=== PATIENT | male | born 1955 | race Caucasian/White ===

== ENCOUNTER → 2017-12-26 | Outpatient (CLI) | payer BC ==
[2017-12-26 09:34] LABS: ALT 37 U/L (21-72); AST 39 U/L (17-59); Albumin 4.1 g/dL (3.5-5.0); Alkaline Phosphatase 60 U/L (38-126); Anion Gap 10 mmol/L; Blood Urea Nitrogen 15 mg/dL (9-20); Calcium 9.3 mg/dL (8.4-10.2); Carbon Dioxide 24 mmol/L (22-30); Chloride 107 mmol/L (98-107); Glucose 104 mg/dL (74-99); Potassium 4.6 mmol/L (3.5-5.1); Sodium 141 mmol/L (137-145); Total Bilirubin 0.6 mg/dL (0.2-1.3)
== END | disposition home or self-care (01) ==
LOC: LABWHC1 08:19
PROVIDERS: ATTEND Otolaryngology
DX: E04.1 Nontoxic single thyroid nodule (principal)
CPT/HCPCS: 36415; 80053; 84443

== ENCOUNTER → 2018-09-24 | Outpatient (CLI) | payer BC | END | disposition home or self-care (01) | LOC: LABWHC1 07:57 | PROVIDERS: ATTEND Otolaryngology | DX: E03.9 Hypothyroidism, unspecified (principal) | CPT/HCPCS: 36415; 86376 ==

== ENCOUNTER → 2018-09-26 | Outpatient (CLI) | payer BC ==
--- NOTE | 2018-09-28 19:39 | US ---
EXAMINATION TYPE: US thyroid st tissue head/neck DATE OF EXAM: 09/26/2018 COMPARISON: NONE CLINICAL HISTORY: 63-year-old male with abnormal thyroid labs R94.6, R22.1 Swelling/mass in neck. Pat ient states having left vocal chord issues. On thyroid meds. TECHNIQUE: Multiple sonographic images of the thyroid gland are obtained. FINDINGS: GLAND SIZE: Right Lobe: 2.4 x 0.9 x 1.0 cm Overall Parenchyma: heterogenous Left Lobe: 2.5 x 1.3 x 1.0 cm Overall Parenchyma: heterogeneous Isthmus Thickness: 0.2 cm NODULES RIGHT: # of nodules measured on right: 0 LEFT: # of nodules measured on left: 0 ISTHMUS: # of nodules measured in the isthmus: 0 Bilateral neck scanned, no evidence of lymphadenopathy. [facility] notes: Bilateral heterogenous and small in size appearing thyroid. IMPRESSION: Small heterogeneous thyroid gland. Findings suggest chronic hypothyroidism. No discrete nodules.
== END | disposition home or self-care (01) ==
LOC: RADUSMAIN 15:45
PROVIDERS: ATTEND Otolaryngology
DX: R22.1 Localized swelling, mass and lump, neck (principal); R94.6 Abnormal results of thyroid function studies
CPT/HCPCS: 76536

== ENCOUNTER → 2018-10-30 | Day surgery (SDC) | payer BC ==
[2018-10-27 14:49] VITALS: BMI 37.7
[~2018-10-30] MED LIST: BUPIVACAIN-EPI 0.5%-1:200,000 30 ML VIAL SQ ONE; DEXAMETHASONE SOD PHOS (MDV) 100 MG/10 ML VIAL ONE; DEXAMETHASONE SOD PHOSPHATE 10 MG/ML 1 ML VIAL IV ONE; DEXAMETHASONE SOD PHOSPHATE 4 MG/ML 1 ML VIAL IV ONE; FAMOTIDINE 20 MG/2 ML VIAL IV ONE; HYDROmorphone 0.5 MG/0.5 ML SYRINGE IVP PRN; LACTATED RINGERS 1,000 ML IV SCH; LIDOCAINE 1%-EPI 1:100,000 20 ML VIAL SQ ONE; MIDAZOLAM 2 MG/2 ML VIAL IV PRN; MIDAZOLAM 2 MG/2 ML VIAL ONE; ONDANSETRON 4 MG/2 ML VIAL IVP ONE; PROPOFOL 10 MG/ML 20 ML VIAL IV ONE; fentaNYL (PF) 50 MCG/ML 2 ML AMP ONE
[2018-10-30 09:26] VITALS: RESP 16
[2018-10-30] MEDS: OXYMETAZOLINE 0.05% NASL SPRAY 1 SPRAY BOTTLE NASAL ONE ×5 (10:00→10:20)
[2018-10-30 13:30] VITALS: TEMP 97.4
--- NOTE | 2018-10-30 13:45 | P.OP ---
Date of Procedure: 10/30/18 Preoperative Diagnosis: Left vocal cord paralysis Postoperative Diagnosis: same Procedure(s) Performed: Left medialization thyroplasty with a #10 Gibson implant, male Anesthesia: JOSLYNA Surgeon: Craig Zabala Estimated Blood Loss (ml): 5 Pathology: none sent Condition: stable Disposition: PACU Indications for Procedure: This patient developed a left vocal cord paralysis and associated hoarseness dysphagia and suspected microaspiration. This been going on for a long time and the patient's anxious to have this corrected.. A medialization thyroplasty was discussed and the patient's motivated for this surgery. All risks, benefits, and alternative therapies were discussed. Consent was obtained and all questions were answered. Operative Findings: Left vocal cord paralysis noted in the paramedian position. Patient was severely dysphonic Description of Procedure: OPERATIVE PROCEDURE: This patients neck was prepped and draped in the usual fashion. (LEFT SIDE) The anterior neck was prepared and draped such to expose the ipsilateral and contralateral sides. Oxygen was administered through nasal prongs. The thyroid notch, cricothyroid membrane and the inferior margin of the cricoid cartilage were identified and marked with dots utilizing a surgical marker. A horizontal skin incision line is marked approximately 5 mm above the inferior margin of the thyroid cartilage. The area surrounding the incision as well as the deep tissues were infiltrated with 1% Xylocaine and 1:100,000 epinephrine. The incision began 2 cm from the midline on the contralateral side and extended on the ipsilateral side of the neck to the anterior border of the sternocleidomastoid muscle. The skin incision was extended through the platysmas layer with a 15 blade so as to expose the sternohyoid and omohyoid muscles. Flaps were established superiorly and inferiorly in the plane superficial to the fascia covering the strap muscles. Flaps were with self-retaining retractors. The midline i.e. medial raphe is identified and the two sternohyoid muscles are to expose the thyroid notch. The anterior aspect of the thyroid cartilage, cricothyroid membrane and cricoid cartilage were exposed. The under surface of the ipsilateral sternohyoid and omohyoid muscles were dissected so that it could be retracted laterally. A Gelpi retractor was used for lateral retraction. The strap muscles were retracted laterally to expose the thyrohyoid muscle on the surface of the thyroid lamina. The muscle was transected just above the inferior border of the thyroid lamina. The thyrohyoid muscle was detached from its inferior attachment utilizing the chisel elevator and cutting current on the cautery. The thyroid lamina, its inferior border then inferior thyroid tubercle were exposed. The window caliper was used to locate the superior border and the anterior superior angle of the thyroplasty window. After the inferior thyroid tubercle had been identified and exposed, the inferior border of the thyroid lamina is exposed anterior and posterior to the structure. One point of the caliper touched the inferior border of the thyroid lamina anterior to the inferior thyroid tubercle and the other point directly superior. A similar cautery point was made in the inferior border posterior to the inferior thyroid tubercle utilizing 0.2. The anterior and posterior cautery markings were connected utilizing a surgical marking pen. The line is extended to the anterior aspect of the thyroid lamina and represents the superior margin of the thyroplasty window. The mcdowell point was measures and represents the anterior superior angle of the thyroplasty window. The window outline was measured. The shaft of the instrument was inserted into the electrocautery handle. The anterior superior point of the window outlined and was placed on the mcdowell point cautery. Current was applied making four colbert designating the four corners of the windows. The four colbert were connected with surgical marker . A small tangential saw was used to cut the thyroplasty window. The anterior margin of the cartilage was grasped with a small sharp hook and gently elevated. The underlying perichondrium was from the cartilage utilizing the chisel elevator as the cartilage was removed. After the cartilage was removed from the window, the window outlying instrument was used as a template to confirm that the window size was correct. After confirming accurate window size, the end of perichondrium was elevated from the underlying cartilage in all directions utilizing the chisel elevator. The fiberoptic laryngoscope was inserted at the same time and the size of each measuring device was identified and we started with the smallest size of the measuring device and went up to the largest size. We had him phonate and we looked directly. We felt that the number 10 was the best implant size. A 100 mg of lidocaine hydrochloride was administered intravenously prior to insertion of the implant. The implant was grasped with the broad forceps and the posterior tip of the triangular portion is inserted through the window in the direction of the vocal process of the arytenoid. The middle tear of the base is engaged in the posterior rim of the window with the top and bottom tears at the base on either side of thyroid lamina. The implant was held in place with the index finger and the implant billet recorder was placed in the middle of the anterior base and was used to snap the implant in place. The fiberoptic scope was again used to confirm the vocal cord medialization while the patient phonates and it looked good. The sternohyoid muscles were approximated in the anterior midline with 4-0 Vicryl. The subcutaneous layer was closed after the platysmas was closed. No drain was needed. We observed this area and we did not find any need for that. The patient tolerated this procedure well. The deep dermal layers were closed with 4-0 Vicryl. The skin was closed with 5-0 nylon. Excellent results were obtained. The patient was placed on voice rest. Postoperative instructions are on the chart.
[2018-10-30 15:22] VITALS: BP 116/70; PULSE 62
== END ==
LOC: OR 08:43
PROVIDERS: ATTEND Otolaryngology
DX: J38.01 Paralysis of vocal cords and larynx, unilateral (principal); E07.9 Disorder of thyroid, unspecified; Z87.891 Personal history of nicotine dependence; Z79.890 Hormone replacement therapy; Z80.1 Family history of malignant neoplasm of trachea, bronchus and lung; Z82.49 Family history of ischemic heart disease and other diseases of the circulatory system; Z97.2 Presence of dental prosthetic device (complete) (partial)
CPT/HCPCS: 31591; L8509; J2250; J1100 ×2; J2405; J0690; J3010; J2704

== ENCOUNTER → 2020-09-15 | Outpatient (CLI) | payer BC ==
--- NOTE | 2020-09-15 13:05 | XR ---
EXAMINATION TYPE: XR cervical spine comp DATE OF EXAM: 09/15/2020 COMPARISON: NONE HISTORY: Pain TECHNIQUE: Four views are submitted. FINDINGS: The odontoid is intact. There are no compression deformities. The prevertebral soft tissue structur es are within normal limits. Large anterior osteophyte disease C5-6 C6-C7 with severe degenerative d isc disease C3-4 and C5-C6. Multilevel facet arthropathy. Foraminal encroachment at multiple levels s uspected. IMPRESSION: 1. Multilevel severe degenerative disc disease with hypertrophic spurring. Foraminal encroachment sug gested. Recommend follow-up MRI..
== END | disposition home or self-care (01) ==
LOC: RADXRMAIN 12:37
PROVIDERS: ATTEND Nurse Practitioner Family
DX: M50.30 Other cervical disc degeneration, unspecified cervical region (principal); M46.02 Spinal enthesopathy, cervical region
CPT/HCPCS: 72050

== ENCOUNTER → 2020-09-27 | Outpatient (CLI) | payer BC ==
--- NOTE | 2020-09-27 11:45 | MR ---
EXAMINATION TYPE: MR cervical spine wo con DATE OF EXAM: 09/27/2020 COMPARISON: X-ray 09/15/2020 HISTORY: Headaches, weakness in fingers. TECHNIQUE: Multiplanar, multisequence images of the cervical spine were acquired. C2-C3: Loss of disc space and signal. There is uncovertebral joint hypertrophy. No disc herniation or canal stenosis. Facet arthropathy noted. C3-C4: Severe loss of disc space and signal with discogenic marrow changes. Facet arthropathy and unc overtebral joint hypertrophy noted with moderate left foraminal encroachment. Is broad-based central disc bulging with disc osteophyte complex resulting in effacement of thecal sac. Borderline central s tenosis. C4-C5: Degenerative disc disease with facet arthropathy marked on the left. There is uncovertebral lucie int hypertrophy and moderate left foraminal encroachment. No Canal stenosis. Minimal central disc bul ging. C5-C6: Degenerative disc disease with broad-based disc bulging. There is posterior disc osteophyte co mplex with uncovertebral joint hypertrophy. Mild bilateral foraminal encroachment. Mild effacement of thecal sac. C6-C7: Degenerative disc disease with broad-based disc bulging greater paracentrally the left but no canal stenosis or focal herniation. Neural foramina are patent. No Canal stenosis. C7-T1: Degenerative disc disease but no evidence of disc herniation, canal stenosis, or foraminal enc roachment. Cervical segments are intact. There is normal alignment. Cervical spinal cord is of normal signal. Craniovertebral junction relationships are within normal limits. IMPRESSION: 1. Multilevel degenerative disc disease with severe changes at C3-C4 and C5-C6. Disc bulging with unc overtebral joint hypertrophy and facet arthropathy contribute to multilevel foraminal encroachment. B orderline central stenosis at C3-C4.
== END | disposition home or self-care (01) ==
LOC: RADMRIMAIN 10:39
PROVIDERS: ATTEND Nurse Practitioner Family
DX: M50.322 Other cervical disc degeneration at C5-C6 level (principal); M48.02 Spinal stenosis, cervical region; M50.223 Other cervical disc displacement at C6-C7 level; M47.812 Spondylosis without myelopathy or radiculopathy, cervical region; M99.71 Connective tissue and disc stenosis of intervertebral foramina of cervical region
CPT/HCPCS: 72141

== ENCOUNTER → 2020-12-13 | Outpatient (CLI) | payer BC ==
--- NOTE | 2020-12-13 15:35 | MR ---
EXAMINATION TYPE: MR lumbar spine wo con DATE OF EXAM: 12/13/2020 COMPARISON: None HISTORY: 65-year-old male radiculopathy, Lower back pain into Left Leg. Left Leg numbness. X1year TECHNIQUE: Multiplanar, multisequence images of the lumbar spine were acquired. FINDINGS: Vertebral body heights are preserved alignment maintained. Mild heterogeneous marrow signal without replacement. Findings likely reflect red marrow hyperplasia. Scattered fatty matrix meningiomas are present measuring up to 8 mm. Conus medullaris is normal. Incidental fatty filum terminale. Some fusiform ectasia of the infrarenal abdominal aorta up to 2.5 cm. Hypertrophic facet arthropathy mid to lower lumbar spine. Mild multilevel degenerative disc disease with desiccated and bulging discs. [id number] disc sp dominique narrowing at L5-S1. Tiny right paracentral annular fissure at L5-S1. Prominent dorsal epidural fat mid to lower lumbar spine and a component of mild congenital spinal can al stenosis. Lumbar spine with AP canal dimension of 1.1 cm. At T12-L1, no canal or foraminal stenosis. At L1-L2, mild broad-based posterior disc bulge impressing on the ventral thecal sac but without any significant canal or foraminal stenosis. At L2-L3, there is disc bulge and facet arthropathy. Overall mild attenuation of the thecal sac. No s ignificant neural foraminal stenosis. At L3-L4, hypertrophic facet arthropathy with disc bulge. Mild overall narrowing of the spinal canal in part due to the congenital canal narrowing. No significant neuroforaminal stenosis. At L4-L5, there is hypertrophic facet arthropathy with ligamentum flavum thickening, prominent dorsal epidural fat, mild disc bulge, and congenital spinal canal narrowing. Overall moderate narrowing of the spinal canal with mild bilateral neuroforaminal stenosis. Disc material may abuts the traversing left L5 nerve root at this level. At L5-S1, mild disc bulge. Tiny right paracentral annular fissure. Facet arthropathy. Changes result in mild right greater than left foraminal stenosis. No spinal canal stenosis. IMPRESSION: 1. Mild multilevel degenerative disc disease, more moderate at L5-S1 with a tiny right paracentral an nular fissure. 2. 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 There is hypertrophic facet ar thropathy in the mid to lower lumbar spine along with some ligamentum flavum thickening. 3. Overall moderate spinal canal stenosis at L4-L5. Mild bilateral neural foraminal stenosis here. Di sc material may abut the traversing left L5 nerve root at this level. 4. Mild overall spinal canal narrowing at L2-L3. 5. Incidental fatty filum terminale. The conus medullaris is normally located.
== END | disposition home or self-care (01) ==
LOC: RADMRIMAIN 07:47
PROVIDERS: ATTEND Nurse Practitioner Family
DX: M48.061 Spinal stenosis, lumbar region without neurogenic claudication (principal); M51.17 Intervertebral disc disorders with radiculopathy, lumbosacral region
CPT/HCPCS: 72148